=== PATIENT | female | born 1965 | race African-American/Black ===

== ENCOUNTER 2021-01-27 04:43 | Emergency (ER) | payer MEDICAID ==
[~2021-01-27] VITALS: Ht 149.9 cm; Wt 73.5 kg
[2021-01-27 05:12] VITALS: BP 148/88
[2021-01-27] MEDS ORDERED: PROM118S PO (05:56)
== END 2021-01-27 06:11 | disposition home or self-care (01) ==
LOC: ER 04:48
DX: J40 Bronchitis, not specified as acute or chronic (principal)
CPT/HCPCS: 71045-TC